=== PATIENT | female | born 2000 | race Hispanic/Latino ===

== ENCOUNTER 2018-05-27 19:20 | Emergency (ER) | payer OTHER ==
[2018-05-27 21:01] LABS: APPEARANCE,URINE Clear (CLEAR); BILIRUBIN,URINE Negative (NEGATIVE); COLOR,URINE Yellow (YELLOW); GLUCOSE, URINE (UA) Negative (NEGATIVE); KETONES,URINE Negative (NEGATIVE); LEUKOCYTE ESTERASE ,URINE Negative (NEGATIVE); NITRATE,URINE Negative (NEGATIVE); OCCULT BLOOD,URINE Moderate (NEGATIVE); PROTEIN,URINE Negative (NEGATIVE)
[2018-05-27 21:15] LABS: BACTERIA,URINE Few /HPF (None Seen); MUCUS,URINE Few LPF (None Seen); SQUAMOUS EPITHELIAL CELL,UR 0-2 /HPF (0-2); WBC,URINE 0-1 /HPF (0-1)
[2018-05-27] MEDS ORDERED: KETOROLAC TROMETHAMINE 30MG/ML ONE (21:22)
== END 2018-05-27 22:29 | disposition home or self-care (01) ==
LOC: EDH 19:20
DX: N13.2 Hydronephrosis with renal and ureteral calculous obstruction (principal)
CPT/HCPCS: 76770; 81001; 81025; 96372; 99285; J1885

== ENCOUNTER 2020-08-20 13:54 | Emergency (ER) | payer OTHER, SELFPAY ==
[2020-08-20 14:55] LABS: BASOPHILS % (AUTO) 0.7 % (0.0-5.0); EOSINOPHILS % (AUTO) 0.3 % (0.0-8.0); HEMATOCRIT 40.4 % (36-48); LYMPHOCYTES % (AUTO) 18.6 % (21.0-51.0); MEAN CORPUSCULAR HEMOGLOBIN 32.2 pg (27.0-33.0); MEAN CORPUSCULAR HGB CONC 33.4 g/dL (32.0-36.0); MEAN CORPUSCULAR VOLUME 96.4 fL (79-99); MONOCYTES % (AUTO) 5.6 % (3.0-13.0); NEUTROPHILS % (AUTO) 74.6 % (40.0-77.0); PLATELET COUNT (AUTO) 217 K/uL (130-400); RED BLOOD CELL COUNT(AUTO) 4.19 MIL/uL (4.00-5.50); RED CELL DISTRIBUTION WIDTH 11.9 % (11.0-15.5); WHITE BLOOD COUNT (AUTO) 5.8 K/uL (4.8-10.8)
[2020-08-20] MEDS ORDERED: SODIUM CHLORIDE 0.9% 1000ML 1,000 ML IV ONE (14:59)
[2020-08-20] MEDS ORDERED: ONDANSETRON HCL 4 MG/2 ML VIAL ONE (14:59)
[2020-08-20 15:15] LABS: ALBUMIN 4.2 g/dL (3.5-5.0); CREATININE 0.8 mg/dL (0.5-1.5); POTASSIUM 3.5 mmol/L (3.5-5.1)
[2020-08-20 15:15] LABS: APPEARANCE,URINE Cloudy (CLEAR); BILIRUBIN,URINE Small (NEGATIVE); COLOR,URINE Dark Yellow (YELLOW); GLUCOSE, URINE (UA) Negative (NEGATIVE); KETONES,URINE >=80 mg/dL (NEGATIVE); LEUKOCYTE ESTERASE ,URINE Small (NEGATIVE); NITRATE,URINE Positive (NEGATIVE); OCCULT BLOOD,URINE Large (NEGATIVE); PH,URINE 7.5 (5.0-8.0); PROTEIN,URINE POS 1+ mg/dL (NEGATIVE)
[2020-08-20 15:27] LABS: BILIRUBIN,TOTAL 0.3 mg/dL (0.2-1.0); TOTAL PROTEIN, SERUM 7.8 g/dL (6.0-8.3)
[2020-08-20 15:28] LABS: HCG,QUAL RESULT NEGATIVE (NEGATIVE)
[2020-08-20 15:35] LABS: BACTERIA,URINE Few /HPF (None Seen); RBC,URINE >100 /HPF (0-1); SQUAMOUS EPITHELIAL CELL,UR 0-2 /HPF (0-2)
[2020-08-20] MEDS ORDERED: IOHEXOL-350 75 ML VIAL IV ONE (15:38)
[2020-08-20] MEDS ORDERED: SODIUM CHLORIDE 0.9% 50 ML IV ONE (15:58)
[2020-08-20] MEDS ORDERED: KETOROLAC TROMETHAMINE 30MG/ML ONE (15:59)
[2020-08-20] MEDS ORDERED: CEFTRIAXONE SODIUM 1 GM ONE (15:59)
== END 2020-08-20 16:46 | disposition home or self-care (01) ==
LOC: EDH 13:54
DX: N39.0 Urinary tract infection, site not specified (principal)
CPT/HCPCS: 36415; 74178; 80053; 81001; 81025; 83605; 83690; 85025; 87088; 96361; 96365; 96375; 99285; J0696; J1885; J2405; J7030; Q9967